=== PATIENT | male | born 1940 | race African-American/Black ===

== ENCOUNTER 2016-06-02 10:53 | Outpatient (CLI) | payer MEDICARE ==
--- NOTE | 2016-06-02 13:45 | XRay Report ---
LUMBOSACRAL SPINE, FIVE VIEWS HISTORY: Low back pain, right sciatic nerve syndrome. FINDINGS: No relevant comparison. There is normal bone mineralization. Straightening of the normal lumbar lordosis is noted. There is no evidence for bone lesion, fracture or spondylolisthesis. Mild to moderate degenerative disc disease is noted at L3-4, L4-5 and L5-S1. There is mild diffuse facet arthropathy at all levels. The oblique images suggest mild bilateral neural foraminal narrowing at L5-S1. IMPRESSION: Moderate lumbar spondylosis as described.
== END 2016-06-02 10:54 | disposition home or self-care (01) ==
LOC: SPVIMAG 10:53
PROVIDERS: ATTEND Family Medicine
DX: M54.41 Lumbago with sciatica, right side (principal)
CPT/HCPCS: 72110